=== PATIENT | female | born 1965 | race Caucasian/White ===

== ENCOUNTER 2025-07-10 14:18 | Outpatient (CLI) | payer MEDICARE, MEDICAID, SELFPAY ==
--- NOTE | ~2025-07-10 | XR_ITS ---
MODIFIED ESOPHAGRAM HISTORY: Dysphagia. TECHNIQUE: Modified barium esophagram was performed on 07/10/2025. I administered fluoroscopy and performed the exam with speech pathologist. Patient was seated for lateral fluoroscopic imaging for ingestion of thin liquids, pudding, solids and quantified amounts, followed by thin liquids in uncontrolled amounts. This was recorded on tape. A single fluoroscopic spot image was also recorded. The DAP for this procedure was 4.083 Gycm2. The amount of fluoroscopy time used during this procedure was 2.1 minutes. FINDINGS: Oral stage: Adequate function. Pharyngeal stage: Reduced laryngeal elevation and tongue base retraction. There is vallecular residue. Laryngeal penetration without evident aspiration however assessment for aspiration significantly limited by poor visualization of the level of the vocal cords due patient body habitus and positioning with underpenetration resulting from the patient's shoulders.. Cervical/esophageal stage: Adequate function. IMPRESSION: Pharyngeal dysphagia with laryngeal penetration. Please correlate with speech pathologist findings and specific feeding recommendations. Reviewed, dictated and finalized at location A.
--- OUTSIDE RECORDS SUMMARY | 2025-07-10 14:56 | XMS_ITS | Clinical Summary ---
Author Organization [facility] [address] [place] [address] Care Team Providers Care Cmo Name Role Phone Angela Wu MD Primary Care Provider [phone] Allergies No known active allergies Medications atorvastatin (LIPITOR) 40 mg tablet Take 1 tablet (40 mg total) by mouth daily Active levothyroxine (SYNTHROID, LEVOTHROID) 50 mcg tablet Take 1 tablet (50 mcg total) by mouth back joiner before breakfast Active ketoconazole (NIZORAL) 2 % shampoo Apply topically 2 (two) times a week. Apply to damp skin, lather, leave on 5 minutes, and rinse Active cyanocobalamin (Vitamin B-12) 1,000 mcg tabletIndicati ons:Prevention of Vitamin B12 Deficiency Take 1 tablet (1,000 mcg total) by mouth daily Active multivitamin capsule Take 1 capsule by mouth daily Active triamcinolone (KENALOG) 0.1 % cream triamcinolone acetonide 0.1 % topical cream APPLY THIN LAYER TOPICALLY TO THE AFFECTED AREA TWICE DAILY FOR 7 DAYS Active calcium carbonate-julia min D3 (CALTRATE 600 + D) 1500 mg (600 mg elemental) -400 units per tablet calcium carbonate 600 mg (1,500 mg)-vitamin D3 400 unit tablet TAKE 1 TABLET BY MOUTH TWICE DAILY Active escitalopram (LEXAPRO) 10 mg tablet TAKE 1 TABLET BY MOUTH DAILY 90 tablet [address] (DEPAKOTE) 250 mg EC tablet TAKE 1 TABLET BY MOUTH TWICE DAILY 180 tablet 3 3 Active donepeziL (ARICEPT) 5 mg tablet Take 1 tablet (5 mg total) by mouth daily with breakfast 90 tablet 3 3 Active nystatin cream APPLY TOPICALLY TO THE AFFECTED AREA TWICE DAILY 3 Active melatonin tabletIndicati ons:Insomnia Take 1 tablet (3 mg total) by mouth nightly Active memantine (NAMENDA) 10 mg tablet TAKE 1 TABLET BY MOUTH TWICE DAILY 200 tablet 2 3 Active Active Problems Problem Noted Date Diagnosed Date Bacteremia 07/10/2023 Alzheimer disease 03/17/2021 Abnormal LFTs 01/07/2021 Assessment & Plan (01/07/2021 6:23 PM CDT): A mildly elevated ALT that has subsequently normalized. Most likely possibility is non-alcoholic steatohepatitis. I have recommended an ultrasound to see if there is fatty tissue in the liver. I am also screening her for hepatitis-C and hepatitis-B. If either of these studies are positive, antiviral therapy may need to be discussed. If fatty liver is the only abnormality, routinely, I would recommend weight loss. This is the most effective means of decreasing hepatic fat. Unfortunately, with her dementia and relative debilitation, caloric restriction and an exercise program may be difficult to achieve. Furthermore, there is no obvious evidence of advanced liver disease. Many patients with fatty liver go on to live for decades. Further recommendations when results of studies are available. Urinary incontinence 08/17/2020 Abnormality of gait and mobility 08/17/2020 Caregiver stress 08/17/2020 Wandering 08/17/2020 Frequent falls 08/17/2020 Memory loss 02/08/2019 Insomnia 09/24/2018 Hyperlipidemia 06/06/2018 Hypothyroidism 06/06/2018 Down syndrome 06/06/2018 Hyperglycemia 08/16/2017 Obstructive sleep apnea of adult 06/14/2017 Immunizations Immunization Administration Dates Next Due Moonshado (J&J) SARS-CoV-2 Vaccination 11/19/2020 Surgical History Surgery Date Site/Laterality Comments NO PAST SURGERIES Medical History Medical History Date Comments Down syndrome Social History Tobacco Use Types Packs/Day Years Used Date Smoking Tobacco: Never Smokeless Tobacco: Never [facility] Utilities Answer Date Recorded In the past 12 months has [employer], gas, oil, or water company threatened to shut off services in your home? No 07/10/2023 Social Connection and Isolation Panel Answer Date Recorded In a typical week, how many times do you talk on the phone with family, friends, or neighbors? Twice a week 07/10/2023 How often do you get togethe r with friends or relatives? More than three times a week 07/10/2023 How often do you attend chur ch or latter day services? Never 07/10/2023 Do you belong to any clubs o r organizations such as scientologist groups, unions, fraternal or athletic groups, or school groups? No 07/10/2023 How often do you attend meet ings of the clubs or organizations you belong to? Never 07/10/2023 Are you , , di vorced, , never , or living with a partner? Never 07/10/2023 AUDIT-C Answer Date Recorded Q1: How often do you have a drink containing alc ohol? Never 01/07/2021 Average Number of Drinks Not on file 021 Q3: How often do you have si x or more drinks on one occasion? Never 01/07/2021 Overall Financial Resource Strain (CARDIA) Answe r Date Recorded How hard is it for you to pa y for the very basics like food, housing, medical care, and heating? Not hard at all 07/10/2023 Hunger Vital Sign Answer Date Recorded Within the past 12 months, y ou worried that your food would run out before you got the money to buy more. Never true 07/10/20 23 Within the past 12 months, t he food you bought just didn't last and you didn't have money to get more. Never true 07/10/2023 PRAPARE - Transportation Answer Date Re corded In the past 12 months, has l ack of transportation kept you from medical appointments or from getting medications? No 06/13 In the past 12 months, has l ack of transportation kept you from meetings, work, or from getting things needed for daily living? No 07/10/2023 Housing Stability Vital Sign Answer Dmitriy e Recorded In the last 12 months, was t here a time when you were not able to pay the mortgage or rent on time? No 07/10/2023 In the last 12 months, how many places have you lived? 1 07/10/2023 In the last 12 months, was t here a time when you did not have a steady place to sleep or slept in a alf (including now)? No 07/10/2023 Personal Safety Answer Date Recorded Have you ever been in or are you currently in a harmful physical or emotional relationship or is someone making you feel afraid or unsafe? Unable to Answer 07/10/2023 Comments Unknown Sex and Gender Information Value Date Recorded Sex Assigned at Not on file Legal Sex Female 11:55 AM CDT Gender Identity Not on file Sexual Orientation Not on file Occupation Industry Job Start Date Job End Date Disabled Not on file Not on file Not on file Obstetrics History Last Filed Vital Signs Vital Sign Reading Time Taken Comments Blood Pressure 111/68 07/12/2023 11:55 AM CDT Pulse 84 07/12/2023 11:55 AM CDT Temperature 36.7 C (98.1 F) 07/12/2023 11:55 AM CDT Respiratory Rate 14 07/12/2023 8:32 AM CDT Oxygen Saturation 95% 07/12/2023 11:55 AM CDT Inhaled Oxygen Concentration - - Weight 67.8 kg (149 lb 7.6 oz) 07/10/2023 8:48 A M CDT Height 139.7 cm (4' 7) 07/10/2023 8:48 AM CDT Body Mass Index 34.74 07/10/2023 8:48 AM CDT Plan of Treatment Health Maintenance Due Date Last Done Comments Breast Cancer Screening-Mammogram 1967 Cervical Cancer Screening 1967 Colon Cancer Screening-Colonoscopy 1967 Depression Screening 1967 DTaP/Tdap/Td Vaccine (1 - Tdap) 1978 Hepatitis B Screening 1985 Regular Well Visit/Exam 18-64 1985 Zoster Vaccine (1 of 2) 2017 Covid-19 Vaccine ( season) 2025 04/09/2022, 08/04/2021, 11/19/2020 Influenza Vaccine (#1) 2025 , 06/23/2021, 06/12/2020, Additional history exists Hepatitis C Screening Completed 01/07/2021 Pneumococcal vaccine <65 Aged Out No longer eligible based on patient's age to complete this topic Procedures Procedure Name Priority Date/Time Associated Diagnosis Comments HEPATITIS C ANTIBODY Routine 01/07/2021 1:38 PM CDT Abnormal LFTs from Last 3 Months or Most Recently Relevant to Health Maintenance Results * Hepatitis C antibody (01/07/2021 1:38 PM CDT) Hep C Ab Nonreactive Nonreactive [facility] Comment:Antibodies to HCV no t detected. Does NOT exclude the possibility of recent exposure to HCV. Blood specimen (specimen) 01/07/2021 1:38 PM CDT 01/07/2021 4:51 PM CDT Robert Solis MD LAB MICROBIOLOGY - GEN ERAL ORDERABLES Edited Result - Final [facility] Department [place] [address] from Last 3 Months or Most Recently Relevant to Health Maintenance Insurance [employer] [facility] MEDICARE ADVANTAGE [employer]PA [facility] MEDICARE ADVANTAGE IDPA Advance Directives For more information, please contact: [phone] * LIMITED - No CPR (Latest Code Status on File) Date Activated Date Inactivated Comments 07/10/2023 2:00 PM 07/12/2023 9:49 PM Question Answer Comments Provide aggressive medical m anagement before a full cardiopulmonary arrest occurs. Use antibiotics, IV Fluids, and medical treatment unless specifically selected below: No intubation Care Teams Cmo Relationship Specialty Start Date End Date Angela Wu MD PCP - General Family Medicine 08/17/20
--- OUTSIDE RECORDS SUMMARY | 2025-07-10 14:56 | XMS_ITS | Data Portability ---
Author Organization [facility] Address [address] [place] [address] Care Team Providers Care Principal Software Architect Name Role Phone NACHO SIBLEY Director Occupational CHRISTIN ADAMS Primary Care Provider Assessment No assessment recorded. Plan of Treatment Reminders Order Date Submit Date Provider Last Modified By Organization Details Last Modified Time Details Appointments None recorded. Lab CMP, serum or plasma 2022 023 [facility], [address] [place] [address], [address], [place], [address], 19:10:52 lipid panel, serum 2022 023 [facility], [address] [place] [address], [address], [place], [address], 19:10:52 CBC w/ auto diff 2022 023 [facility], [facility], [address], [place], [address], 19:10:53 HbA1c (hemoglobin A1c), blood 2022 023 [facility], [address] [facility] [address], [address], [place], [address], 3 06:20:11 TSH + free T4, serum 2022 023 [facility], [address] [facility], [address], [place], [address], 3 08:21:06 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 Surgeries None recorded. Imaging US, duplex, venous, lower extremity 2022 023 [facility]), [address] [facility], [place], [address], 4 05:01:53 Medication Orders triamcinolo ne acetonide 0.1 % topical cream 2022 023 [id number], [address], [place], [place], [id number], 3 12:08:04 nystatin 100,000 unit/gram topical cream 2022 023 [facility][id number], [address], [place], [place], [id number], 3 12:08:03 polymyxin B sulfate 10,000 unit-trimet hoprim 1 mg/mL eye drops 2022 023 [facility], [address], [address], [id number], 3 09:37:23 Patient TargetsNo targets recorded. 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 Referral for Onyc homycosis of toenails Referring Physician: Christin Adams, Family Medicine, Encounter Date: 03/22/2023 Results Created Date Observation Date Name Description Value Unit Range Abnormal Flag Note LastModifiedBy Organization Detail LastModifiedTime 09/14/1909/15/2022 TSH+F REE T4 TSH 1.480 uIU/m L 0.450- 4.500 Not Available [facility] ([facility]) [address] [place], [address], 09/15/2022 08:21:06 09/14/1909/15/2022 TSH+F REE T4 T4,free(dire ct) 1.22 NG/dL 0.82-1 .77 Not Available [facility] ([facility]) [address] [facility], [place], [address], 09/15/2022 08:21:06 03/22/20 23 03/22/2023 LIPID PANEL WITH LDL/H DL RATIO cholesterol, total 167.9 mg/dL 140.0- 200.0 Not Available [facility] [address] [place], [address], 03/22/2023 19:10:52 03/22/2003/22/2023 LIPID PANEL WITH LDL/H DL RATIO triglyceride s 160 mg/dL <=150 above high normal Not Available [facility] [address] [place], [address], 03/22/2023 19:10:52 03/22/20 23 03/22/2023 LIPID PANEL WITH LDL/H DL RATIO HDL cholesterol 36.4 mg/dL 40.0-1 00.0 below low normal Not Available [facility] [address] [place], [address], 03/22/2023 19:10:52 03/22/20 23 03/22/2023 LIPID PANEL WITH LDL/H DL RATIO VLDL cholesterol margie 32.00 mg/dL 5.00-4 0.00 Not Available [facility] [address] [place] [address], [address], 03/22/2023 19:10:52 03/22/20 23 03/22/2023 LIPID PANEL WITH LDL/H DL RATIO LDL chol calc ([facility]) 103.3 mg/dL 0.0-99 .0 above high normal Not Available [facility] [address] [place] [address], [address], 03/22/2023 19:10:52 03/22/20 23 03/22/2023 LIPID PANEL WITH LDL/H DL RATIO LDL/HDL ratio 2.8 Not Available [facility] [address] [place], [address], 03/22/2023 19:10:52 03/22/20 23 03/22/2023 COMP. METAB OLIC PANEL (14) glucose 95 mg/dL 65-99 ANION GP 16.0 mmol/ L N OSMOL 287.0 mOsM/ L N REFER ENCE RANGE : 275.0 -301. 0 Not Available [facility] [address] [place], [address], 03/22/2023 19:10:52 03/22/20 23 03/22/2023 COMP. METAB OLIC PANEL (14) BUN 15 mg/dL 8-26 Not Available [facility] [address] [place], [address], 03/22/2023 19:10:52 03/22/20 23 03/22/2023 COMP. METAB OLIC PANEL (14) creatinine 1.14 mg/dL 0.50-1 .40 Not Available [facility] [address] [place], [address], 03/22/2023 19:10:52 03/22/20 23 03/22/2023 COMP. METAB OLIC PANEL (14) eGFR 57 mL/mi n/1.7 3 >=60 below low normal Not Available [facility] [address] [place] [address], [address], 03/22/2023 19:10:52 03/22/20 23 03/22/2023 COMP. METAB OLIC PANEL (14) BUN/creatini ne ratio 13.0 Not Available [facility] [address] [place], [address], 03/22/2023 19:10:52 03/22/20 23 03/22/2023 COMP. METAB OLIC PANEL (14) sodium 144.0 mmol/ L 136.0- 144.0 Not Available [facility] [address] [place] [address], [address], 03/22/2023 19:10:52 03/22/20 23 03/22/2023 COMP. METAB OLIC PANEL (14) potassium 4.3 mmol/ L 3.5-5. 3 Not Available [facility] [address] [place], [address], 03/22/2023 19:10:52 03/22/20 23 03/22/2023 COMP. METAB OLIC PANEL (14) chloride 106 mmol/ l 101-11 1 Not Available [facility] [address] [place] [address], [address], 03/22/2023 19:10:52 03/22/20 23 03/22/2023 COMP. METAB OLIC PANEL (14) carbon dioxide, total 26.4 mmol/ L 21.0-3 2.0 Not Available [facility] [address] [place], [address], 03/22/2023 19:10:52 03/22/20 23 03/22/2023 COMP. METAB OLIC PANEL (14) calcium 8.6 mg/dL 8.2-10 .0 Not Available [facility] [address] [place] [address], [address], 03/22/2023 19:10:52 03/22/20 23 03/22/2023 COMP. METAB OLIC PANEL (14) protein, total 6.8 g/dL 6.7-8. 2 Not Available [facility] [address] [place], [address], 03/22/2023 19:10:52 03/22/20 23 03/22/2023 COMP. METAB OLIC PANEL (14) albumin 3.5 g/dL 3.5-5. 5 Not Available [facility] [address] [place], [address], 03/22/2023 19:10:52 03/22/20 23 03/22/2023 COMP. METAB OLIC PANEL (14) globulin, total 3.3 g/dL 1.5-4. 5 Not Available [facility] [address] [place], [address], 03/22/2023 19:10:52 03/22/20 23 03/22/2023 COMP. METAB OLIC PANEL (14) A/G ratio 1.0 Not Available [facility] [address] [place], [address], 03/22/2023 19:10:52 03/22/20 23 03/22/2023 COMP. METAB OLIC PANEL (14) bilirubin, total 0.3 mg/dL 0.0-1. 2 Not Available [facility] [address] [place], [address], 03/22/2023 19:10:52 03/22/20 23 03/22/2023 COMP. METAB OLIC PANEL (14) alkaline phosphatase 99.8 IU/L 42.0-1 21.0 Not Available [facility] [address] [place], [address], 03/22/2023 19:10:52 03/22/20 23 03/22/2023 COMP. METAB OLIC PANEL (14) AST (SGOT) 34.8 U/L 10.0-4 2.0 Not Available [facility] [address] [place], [address], 03/22/2023 19:10:52 03/22/20 23 03/22/2023 COMP. METAB OLIC PANEL (14) ALT (SGPT) 36.3 U/L 10.0-6 0.0 Not Available [facility] [address] [place], [address], 03/22/2023 19:10:52 03/22/20 23 03/22/2023 CBC WITH DIFFE RENTI AL/PL ATELE T WBC 5.4 K/uL 3.4-10 .8 Not Available [facility] [address] [place], [address], 03/22/2023 19:10:53 03/22/20 23 03/22/2023 CBC WITH DIFFE RENTI AL/PL ATELE T RBC 4.4 M/uL 4.2-5. 4 Not Available [facility] [address] [place], [address], 03/22/2023 19:10:53 03/22/20 23 03/22/2023 CBC WITH DIFFE RENTI AL/PL ATELE T hemoglobin 14.4 g/dL 11.5-1 5.5 Not Available [facility] [address] [place], [address], 03/22/2023 19:10:53 03/22/20 23 03/22/2023 CBC WITH DIFFE RENTI AL/PL ATELE T hematocrit 44.2 % 36.0-4 8.0 Not Available [facility] [address] [place], [address], 03/22/2023 19:10:53 03/22/20 23 03/22/2023 CBC WITH DIFFE RENTI AL/PL ATELE T MCV 100 fL 80-95 above high normal Not Available [facility] [address] [place], [address], 03/22/2023 19:10:53 03/22/20 23 03/22/2023 CBC WITH DIFFE RENTI AL/PL ATELE T MCH 33 pg 27-32 above high normal Not Available [facility] [address] [place], [address], 03/22/2023 19:10:53 03/22/20 23 03/22/2023 CBC WITH DIFFE RENTI AL/PL ATELE T MCHC 33 g/dL 32-36 Not Available [facility] [address] [place], [address], 03/22/2023 19:10:53 03/22/20 23 03/22/2023 CBC WITH DIFFE RENTI AL/PL ATELE T RDW 17.6 % 11.5-1 4.5 above high normal Not Available [facility] [address] [place], [address], 03/22/2023 19:10:53 03/22/20 23 03/22/2023 CBC WITH DIFFE RENTI AL/PL ATELE T platelets 255 K/uL 155-37 9 MPV 10.0 FL 8.9-1 2.7 N Not Available [facility] [address] [place], [address], 03/22/2023 19:10:53 03/22/20 23 03/22/2023 CBC WITH DIFFE RENTI AL/PL ATELE T neutrophils 60.6 % 40.0-7 4.0 Not Available [facility] [address] [place], [address], 03/22/2023 19:10:53 03/22/20 23 03/22/2023 CBC WITH DIFFE RENTI AL/PL ATELE T lymphs 26.2 % 14.0-4 6.0 Not Available [facility] [address] [place], [address], 03/22/2023 19:10:53 03/22/20 23 03/22/2023 CBC WITH DIFFE RENTI AL/PL ATELE T monocytes 5.4 % 4.0-12 .0 Not Available [facility] [address] [place], [address], 03/22/2023 19:10:53 03/22/20 23 03/22/2023 CBC WITH DIFFE RENTI AL/PL ATELE T eos 4 % 0-5 Not Available [facility] [address] [place], [address], 03/22/2023 19:10:53 03/22/20 23 03/22/2023 CBC WITH DIFFE RENTI AL/PL ATELE T basos 2.2 % 0.0-1. 0 above high normal Not Available [facility] [address] [place], [address], 03/22/2023 19:10:53 03/22/20 23 03/22/2023 CBC WITH DIFFE RENTI AL/PL ATELE T neutrophils (absolute) 3.2 K/uL 1.4-7. 0 Not Available [facility] [address] [place], [address], 03/22/2023 19:10:53 03/22/20 23 03/22/2023 CBC WITH DIFFE RENTI AL/PL ATELE T lymphs (absolute) 1.4 K/uL 0.7-3. 1 Not Available [facility] [address] [place], [address], 03/22/2023 19:10:53 03/22/20 23 03/22/2023 CBC WITH DIFFE RENTI AL/PL ATELE T monocytes(ab solute) 0.3 K/uL 0.1-0. 9 Not Available [facility] [address] [place], [address], 03/22/2023 19:10:53 03/22/20 23 03/22/2023 CBC WITH DIFFE RENTI AL/PL ATELE T eos (absolute) 0.2 K/uL 0.0-0. 4 Not Available [facility] [address] [place], [address], 03/22/2023 19:10:53 03/22/20 23 03/22/2023 CBC WITH DIFFE RENTI AL/PL ATELE T baso (absolute) 0.1 K/uL 0.0-0. 3 Not Available [facility] [address] [place], [address], 03/22/2023 19:10:53 03/22/20 23 03/22/2023 CBC WITH DIFFE RENTI AL/PL ATELE T immature granulocytes 1.9 % Not Available [facility] [address] [place], [address], 03/22/2023 19:10:53 03/22/20 23 03/22/2023 CBC WITH DIFFE RENTI AL/PL ATELE T immature grans (abs) 0.1 K/uL Not Available [facility] [address] [place], [address], 03/22/2023 19:10:53 03/22/20 23 03/22/2023 CBC WITH DIFFE RENTI AL/PL ATELE T NRBC 0 % Not Available [facility] [address] [place], [address], 03/22/2023 19:10:53 03/22/20 23 03/23/2023 HEMOG LOBIN A1C hemoglobin A1C 5.7 % 4.8-5. 6 above high normal Predi abete s: 5.7 - 6.4 Diabe thien: >6.4 Glyce kit contr ol for adult s with diabe thien: <7.0 Not Available [facility] ([facility]) [address] [facility], [place], [address], 03/23/2023 06:20:11 04/19/20 23 04/19/2023 [place], [place] [facility] [place] [facility], [facility] [place] [facility] No observ ation record ed. [facility] [address], [place], [address], 04/19/2023 13:02:21 Result Notes None recorded. Problems Name Problem SNOMED Code Status Onset Date Resolution Date Notes Provider Name and Address Organization Details Recorded Time Darlene lowry n 157886104 Active Ernesto Florentino MD Attn: Accountin g,[address] [facility], [place], [address], [place] [facility] 6 11:16:34 Urinary incontine nce 043842745 Active J[place]ain [place], [place] - [facility] 5 12:53:52 Swollen abdomen 46833895 Completed 07/15/2021 LAINE PRESTON Attn: Accountin g,[address] [facility], [place], [address], [place] [facility] 1 16:44:15 Abnormal cervical Papanicol aou smear 570966180 Active [place] - [facility] 5 12:53:52 Hyperlipi demia 78955753 Active LAINE PRESTON Attn: Accountin g,[address] [facility], [place], [address], [place] [facility] 3 09:25:36 Hypothyro idism 28957324 Active LAINE PRESTON Attn: Accountin g,[address] [facility], [place], [address], [place] [facility] 3 09:25:32 Lesion of skin of face 618811267237 Active Ernesto Florentino MD Attn: Accountin g,[address] [facility], [place], [address], [place] [facility] 6 11:16:34 Obstructi ve sleep apnea of adult 797477852384 3 Active 2016 LAINE PRESTON Attn: Liza york,[address] [facility], [place], [address], [place] [facility] 3 10:24:31 Active immunizat ion Completed 201607/15/2021 LAINE PRESTON Attn: Liza york,[address] [facility], [place], [address], [place] [facility] 1 16:44:01 Excessive thirst 87923407 Active 2016 Flaca Hsieh MD Attn: Liza york,[address] [facility], [place], [address], [place] [facility] 7 11:30:16 Micturiti on frequency and polyuria 899355953 Active 2016 Flaca Hsieh MD Attn: Liza york,[address] [facility], [place], [address], [place] [facility] 7 11:30:35 [facility] emia 39073922 Active 2016 Flaca Hsieh MD Attn: Liza york,[address] [facility], [place], [address], [place] [facility] 7 11:34:20 Administr ation of influenza vaccine Completed 201707/15/2021 LAINE PRESTON Attn: Liza york,[address] [facility], [place], [address], [place] [facility] 1 16:44:04 Dementia 62193860 Active 2018 LAINE PRESTON Attn: Liza york,[address] [facility], [place], [address], [place] [facility] 1 16:45:00 Alzheimer 's disease 88127633 Active 2018 LAINE PRESTON Attn: Liza york,[address] [facility], [place], [address], [place] [facility] 1 16:45:08 Sleep apnea 17093518 Completed 201907/15/2021 LAINE PRESTON Attn: Liza york,[address] 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, [place], [address], [facility] 1 16:43:57 Problem Notes None recorded. Procedures Surgical History Date Name Laterality Status Provider Name and Address Organization Details Recorded Time 3 Nail Debridement completed EMMY MCCORD DPM [address] [place], [address], [facility] 04/04/2023 21:04:59 7 Most Recent Mammogram completed Margot Last MA [facility] 03/29/2017 14:49:11 5 Date of Last Pap Smear completed Tila Devries MA [facility] 12/28/2016 14:36:08 Imaging Results None recorded. Procedure Notes None recorded. Medical Equipment None Reported. Allergies No known drug allergies Medications Name Sig Start Date Stop Date Status Note LastModified by Organization Details LastModified Time Prescript ion - Renewal 11/15 completed atorvast atin Not Available Not Available Not Available Prescript ion - Prior Authoriza tion Request 02/12 completed please check dose Not Available Not Available Not Available levothyro xine sodium 50 mcg tabs 02/12 completed Not Available Not Available Not Available donepezil hcl 10 mg tabs 1 tablet daily at night time 02/16 completed Not Available Not Available Not Available multivita min tablet TAKE 1 TABLET EVERY DAY BY ORAL ROUTE active Not Available Not Available No t Available atorvasta tin 40 mg tablet TAKE 1 TABLET BY MOUTH AT BEDTIME active Not Available Not Available No t Available donepezil 5 mg tablet TAKE ONE TABLET BY MOUTH EVERY MORNING WITH BREAKFAS T active Not Available Not Available No t Available ketoconaz ole 2 % shampoo 02/12 completed Not Available Not Available Not Available divalproe x 250 mg tablet,de layed release active Not Available Not Available Not Available azithromy rosalva 250 mg tablet active Not Available Not Available No t Available fluconazo le 150 mg tablet Take 1 tablet every day by oral route for 1 day. 02/12 completed Not Available Not Available Not Available donepezil 10 mg tablet 07/10 completed Not Available Not Available Not Available Elidel 1 % topical cream 02/12 completed Not Available Not Available Not Available melatonin 3 mg tablet Take 1 tablet every day by oral route at bedtime for 30 days. active OTC Not Available Not Available No t Available triamcino lone acetonide 0.1 % topical cream APPLY THIN LAYER TOPICALL Y TO THE AFFECTED AREA TWICE DAILY FOR 7 DAYS active Not Available Not Available No t Available Depo-Prov era 150 mg/mL intramusc ular suspensio n Inject 1 mL every 3 months by intramus cular route. 05/03 completed Not Available Not Available Not Available levothyro xine 50 mcg tablet TAKE 1 TABLET BY MOUTH ONCE DAILY BEFORE MEALS FOR 30 DAYS active Not Available Not Available No t Available cephalexi n 500 mg capsule Take 1 capsule every 12 hours by oral route. 10/26 completed Not Available Not Available Not Available nystatin 100,000 unit/gram topical cream APPLY TOPICALL Y TO THE AFFECTED AREA TWICE DAILY active Not Available Not Available No t Available polymyxin B sulfate 10,000 unit-trim ethoprim 1 mg/mL eye drops INSTILL 1 DROP INTO AFFECTED EYE(S) BY OPHTHALM IC ROUTE EVERY 6 HOURS X7 DAYS 03/22 completed Not Available Not Available Not Available clobetaso l 0.05 % scalp solution 02/12 completed Not Available Not Available Not Available medroxypr ogesteron e 150 mg/mL intramusc ular syringe INJECT IM EVERY 3 MONTHS DIRECTED 05/03 completed Not Available Not Available Not Available escitalop kiran 10 mg tablet active Not Available Not Available Not Available memantine 10 mg tablet active Not Available Not Available Not Available memantine 5 mg tablet 11/15 completed Not Available Not Available Not Available escitalop kiran 5 mg tablet TAKE ONE TABLET BY MOUTH EVERY DAY 02/16 completed Not Available Not Available Not Available Calcium 600 active 2 daily Not Available Not Available Not Available calcium 600 mg (as carbonate )-vitamin D3 10 mcg (400 unit) tablet TAKE 1 TABLET BY MOUTH TWICE DAILY 07/15 completed Not Available Not Available Not Available cyanocoba mariaelena (vit B-12) 1,000 mcg sublingua l lozenge Place 1 lozenge by sublingu al route as directed . active 1 Every other Day Not Available Not Available Not Available Flucelvax Quad (PF) 60 mcg (15 mcg x 4)/0.5 mL IM syringe 07/15 completed Not Available Not Available Not Available Vitals Date Recorded Oxygen saturation Oxygen saturation in Arterial blood by Pulse oximetry Heart rate Provider Name and Address Organization Details Last Updated DateTime 11/15/2022 93 % 93 % 94 /min LAINE PRESTON Attn: Accounting, [address] [place], [address], [facility] 11/15/2022 12:30:23 Date Recorded Body height Body mass index (BMI) Body weight Respiratory rate Body temperature Systolic And Diastolic Provider Name and Address Organization Details Last Updated DateTime 3 134.62 cm 35.4 kg/m2 01472.9 2 g 20 /min 98.5 [degF] 124/80 mm[Hg] Denise Han CMA [facility] 3 12:06:50 Date Recorded Body height Oxygen saturation Oxygen saturation in Arterial blood by Pulse oximetry Heart rate Respiratory rate Systolic And Diastolic Provider Name and Address Organization Details Last Updated DateTime 3 134.62 cm 96 % 96 % 95 /min 18 /min 122/82 mm[Hg] Yuki Jarvis MA [facility] 3 09:32:10 Date Recorded Body height Pain severity - 0-10 verbal numeric rating [Score] - Reported Body temperature Provider Name and Address Organization Details Last Updated DateTime 04/03/2023 134.62 cm 0 98.2 [degF] Yifan Jacobo MA [facility] 04/03/2023 11:56:08 Date Recorded Heart rate Respiratory rate Provider N elizabeth and Address Organization Details Last Updated DateTime 06/21/2023 85 /min 20 /min LAINE PRESTON Attn: Accounting,[address] [place], [address], [facility] 06/21/2023 16:26:56 Date Recorded Body height Provider Name an d Address Organization Details Last Updated DateTime 06/21/2023 134.62 cm Yuki Jarvis MA [facility] 10:01:59 Social History Question Answer Notes LastModified by Organizat ion Details LastModified Time Tobacco Smoking Status Never Smoker Tila Devries MA null, [facility] 09/22/2014 11:29:08 Do You Have An Advance Directive? Yes Information n ot available 09/22/2014 Are You Blind Or Do You Have Difficulty Seeing? No Information n ot available 01/27/2021 Is Blood Transfusion Acceptable In An Emergency? Yes Information not available 09/22/2014 What Is Your Level Of Caffeine Consumption? None Information not available 01/27/2021 How Much Tobacco Do You Chew? None Information not available 09/22/2014 In The 14 Days Before Symptom Onset, Have You Had Close Contact With A Laboratory-confirm ed COVID-19 While That Case Was Ill? No Information n ot available 01/27/2021 In The 14 Days Before Symptom Onset, Have You Had Close Contact With A Person Who Is Under Investigation For COVID-19 While That Person Was Ill? No Information not available 01/27/2021 Have You Been To An Area Known To Be High Risk For COVID-19? No Information not available 01/27/2021 Are You Deaf Or Do You Have Serious Difficulty Hearing? No Information not available 01/27/2021 What Type Of Diet Are You Following? REGULAR Information n ot available 09/22/2014 Education 12 Information no t available 09/22/2014 Are There Any Guns Present In Your Home? No Information not available 01/27/2021 Hard Of Hearing Or Deaf In One Or Both Ears? No Information not available 02/13/2020 Legally Blind In One Or Both Eyes? No Information no t available 02/13/2020 Live Alone Or With Others? With Others Information not available 09/22/2014 Marital Status Single Informatio n not available 02/13/2020 What Was The Date Of Your Most Recent Tobacco Screening? 04/03/2023 Information not available 04/03/2023 How Many Children Do You Have? 0 Information not available 09/22/2014 Performs Monthly Self-breast Exam? No Information no t available 09/22/2014 Do You Use Protection During Sex? No Information not available 09/22/2014 What Is Your Relationship Status? Single Information not available 09/22/2014 Do You Use Your Seat Belt Or Car Seat Routinely? Yes Information not available 01/27/2021 Seat Belts Used Routinely Yes Information not available 09/22/2014 Are You Sexually Active? No Information not available 09/22/2014 Smoke Alarm In Home Yes Information not available 02/13/2020 Do You Have Smoke And Carbon Monoxide Detectors In Your Home? Yes Information not available 01/27/2021 Are You Passively Exposed To Smoke? No Information no t available 01/27/2021 How Much Tobacco Do You Smoke? No Information not available 02/13/2020 General Stress Level Low Information not available 09/22/2014 Do You Use Sunscreen Routinely? Yes Information not available 09/22/2014 Has Tobacco Cessation Counseling Been Provided? No [email or web address] Information not available 02/16/2022 On What Date Was Tobacco Cessation Counseling Provided? 04/03/2023 Information not available 04/03/2023 How Many Years Have You Smoked Tobacco? 0 Information not available 02/13/2020 Sex: Female Functional Status Question Answer Note LastModified by Organizat ion Details LastModified Time Do you use any illicit or recreational drugs? No Information not available 01/27/2021 What is your level of alcohol consumption? None Information not available 09/22/2014 Do you or have you ever used smokeless tobacco? Never used smokeless tobacco Information not available 02/13/2020 Are you currently employed? No Information not available 09/22/2014 Are you able to care for yourself independently? No Information not available 01/27/2021 What is your occupation? Disabled [email or web address] Information not available 03/29/2017 Do you or have you ever used e-cigarettes or vape? Never used electronic cigarettes Information not available 02/13/2020 What is your exercise level? None Information not available 09/22/2014 Mental Status None recorded. Family History Relationship Description Onset Age of this Age Resolved Age Notes LastModified by Organization Details LastModified Time Mother Heart disease [email or web address] Not available 12/11 15:12:40 Father Heart disease [email or web address] Not available 12/11 15:12:40 Notes:Pt. was a foster child , unknown family history Medical History Condition Response Other Y High Blood Pressure N Breast Cancer N Thyroid Problems Y Kidney or Bladder Problems N GI Problems N Lung Disease N Depression N Blood Clots N Acne N Breast Problem N Skin Problems Y Eating Disorder N Anemia N Anesthesia Complications N Headaches/Migraines N Anxiety Disorder N Diabetes N Ovarian Cancer N Muscle, Joint, or Bone Problems N Blood Transfusions N Seizures/Epilepsy N Polyps N Infertility N Acid Reflux (GERD) Y Cancer N Abuse/Domestic Violence N Asthma N Allergies N ADHD N Endometriosis N High Cholesterol Y Hepatitis N Liver Disease N Heart Disease N Pre-Eclampsia N Osteoporosis Y Gynecological History Statement/Question Response Abnormal Pap Y On BCP's at Conception? N STIs/STDs N HPV Vaccine N Most Recent Mammogram 02/22/2017 Age at Menarche 14 Current Control Method None Sexually Active? N Menses Monthly N Date of Last Pap Smear 12/12/2014 Sexual Problems? N LMP Unknown Desired Control Method None Obstetrics History GPAL:G 0 P 0 0 0 0 Type Value Multiple Births 0 Full Term 0 Induced 0 Spontaneous 0 Premature 0 Living 0 Ectopics 0 Total 0 Immunizations Vaccine Type Date Status Note Provider Nam e and Address Organization Details Recorded Time Influenza, split virus, quadrivalent, preservative 9 completed Not Available [facility] 01/15/2021 04:04:04 COVID-19 vaccine, vector-nr, rS-Ad26, PF, 0.5 mL 1 completed Amelia Garcia null, [place] - [facility] 03/11/2021 16:20:50 Influenza, split virus, quadrivalent, preservative 1 completed Romeo Smiley MA [facility] 07/15/2021 15:57:46 Influenza, split virus, quadrivalent, preservative 7 completed Not Available Count includes the [facility] 09/28/2019 02:44:13 Influenza, split virus, quadrivalent, PF 8 completed Not Available Count includes the [facility] 09/28/2019 02:35:59 Past Encounters Encounter ID Performer Location Encounter Start Date Encounter Closed Date Diagnosis/Indication Diagnosis SNOMED-CT Code Diagnosis ICD10 Code Diagnosis IMO Codes Diagnosis Note [id number] Errol Elias MD [facility] (PAPER CONE MACHINE OPERATOR) [address] [place] [address]144[address]413 0 09/22/2014 10:38:24 09/22/2014 12:08:40 Gynecologic examination [id number] Contraception care [id number] Ernesto Florentino MD [facility] (Adult Med) [address] [place] [address] 37033-210 0 10/16/2014 09:58:15 10/16/2014 17:45:58 Darlene phenomenon [id number] Urinary incontinence 364281057 Swollen abdomen 12886815 [id number] Jermain Gallegos MD [facility] (PAPER CONE MACHINE OPERATOR) [address] [place] [address] 03281-329 0 12/11/2014 14:03:07 12/11/2014 15:41:15 Family planning surveillance [id number] Abnormal c ervical Papanicolaou smear 979753158 Urinary incontinence 179815363 [id number] Ernesto Florentino MD [facility] (Adult Med) [address] [place] [address] 69335-597 0 04/28/2015 10:01:39 04/28/2015 10:56:41 Darlene phenomenon 841118725 Hyperlipidemia 79229775 Hypothyroidism 07935458 [id number] Ernesto Florentino MD [facility] (Adult Med) [address] [place] [address] 43265-459 0 09/25/2015 09:47:36 09/25/2015 10:58:42 Darlene phenomenon 439655414 R73.9 Hyperlipidemia 44627800 E78.5 Hypothyroidism 93610734 E03.9 [id number] MD Tamica Nickerson (Adult Med) [address] [place] [address] 50028-677 0 03/17/2016 09:37:03 03/17/2016 10:35:38 Darlene phenomenon 505650627 R73.9 Hyperlipidemia 15815983 E78.5 Hypothyroidism 78261868 E03.9 Lesion of skin of face 1163635160 06 L98.9 [id number] MD Tamica Nickerson (Adult Med) [address] [place] [address] 51788-444 0 03/31/2016 09:45:05 03/31/2016 18:11:27 Lesion of skin of face 5956033420 06 L98.9 Hyperlipidemia 04965685 E78.5 Darlene phenomenon 43819079 3 R73.9 [id number] Ernesto Florentino MD [facility] (Adult Med) [address] [place] [address] 82647-200 0 08/16/2016 09:42:39 08/16/2016 11:15:17 Hypothyroidism 58134567 E03.9 Hyperlipidemia 71935098 E78.5 Change in skin lesion 39 4198457 L98.9 [id number] MD Tamica Anderson (PAPER [employer]E MACHINE OPERATOR) [address] [place] [address] 23984-089 0 12/28/2016 13:59:45 12/29/2016 13:06:03 Screening mammography 83811212 Z12.31 Gynecologi c examination 63457254 Z01.419 Obese 775665051 E66.9 Uses depot contraception 950846737 Z30.42 she is on depo provera for 3 years. counselled about effects of prolonged use of depo provera on bone mineral density. she say she is on calcium and vitamin D. Counselled about stopping depo provera and see how her periods are after stopping. Patient and her sister in law verbalized understand ing. Agreed to stop depo provera. [id number] MD Tamica Nickerson (Adult Med) [address] [place] [address] 03311-464 0 02/14/2017 09:55:17 02/15/2017 13:04:01 Darlene phenomenon 988301969 R73.9 Hypothyroidism 11889077 E03.9 Hyperlipidemia 52057140 E78.5 [id number] MD Tamica Anderson (PAPER [employer] MACHINE OPERATOR) [address] [place] [address] 45301-685 0 03/29/2017 13:52:53 03/29/2017 15:18:52 Family planning surveillance 010492414 Z30.09 SHE SAY SHE IS DOING GOOD AFTER STOPPING DEPO PROVERA. She refuses other forms of control. Candidiasis of skin 4988 3006 B37.2 COUNSELLED ABOUT IT Pruritic rash 22951335 L 28.2 in left axilla and b/l foot. Rash in axilla is erythemato us with few infected hair follicles. Leukocytes in urine 2757 49230 R82.71 [id number] MD Tamica Anderson (PAPER [employer]E MACHINE OPERATOR) [address] [place] [address] 57243-240 0 05/03/2017 09:57:27 05/03/2017 13:57:22 Pruritic rash 05345400 L28.2 IN AXILLA. SPOKE TO DERMATOLOG Y OFFICE IN [facility] MYSELF AND GOT APPOINTMEN T THIS COMING 05/05/17. ADVISED PATIENT IMPORTANCE OF FOLLOWING WITH DERMATOLOG IST [id number] MD Tamica Esqueda (Adult Med) [address] [place] [address] 67614-981 0 06/14/2017 09:55:29 06/14/2017 12:09:48 Lesion of skin of face 0547265454 06 L98.9 Pt to see dermatolog ist in one month. labs on return Hypothyroidism 24913694 E03.9 Hyperlipidemia 72718798 E78.5 Active immunization 3387 9002 Z23 [id number] MD Tamica Esqueda (Adult Med) [address] [place] [address] 42893-157 0 08/16/2017 10:50:32 08/16/2017 12:15:24 Excessive thirst 27303058 R63.1 BS 125mg/dl Obstructiv e sleep apnea of adult 5868618958 103 G47.33 Urinary incontinence 165 727334 R32 Hypothyroidism 34739399 E03.9 Hyperlipidemia 32680756 E78.5 Hyperglycemia 82039826 R 73.9 [id number] [facility] [address] [place] [address] 11/21/2017 15:17:01 11/21/2017 16:20:10 Hyperglycemia 08062597 R73.9 Obstructiv e sleep apnea of adult 6501226071 103 G47.33 Hypothyroidism 60923273 E03.9 Hyperlipidemia 39103444 E78.5 [id number] [facility] [address] [place] [address] 05/28/2018 14:13:23 05/29/2018 12:30:36 Administration of influenza vaccine 62274343 Z23 Hypothyroidism 27424078 E03.9 Obstructiv e sleep apnea of adult 5948251490 103 G47.33 [id number] Angela Wu MD [facility] [address] [place] [address] 10/26/2018 15:34:11 11/05/2018 09:55:59 Adult health examination 452825059 Z00.00 Patient is in fairly good spirits and denies serious medical concerns. Screening mammography 24 752391 Z12.31 Periodontal disease 2556 008 K05.6 Dependence on continuous positive airway pressure ventilation 598188564 Z99.11 Dementia 46167637 F03.90 Screening colonoscopy 44 6120040 Z12.11 Diabetic foot 689339963 E11.59 will review CMP to see if we can confirm history of diabetes Dysuria 14446803 R30.0 Standardiz ed adult depression screening tool completed 7515852078 99328 Z13.89 patient does not appear to be significan tly depressed. Mixed hyperlipidemia 267 420426 E78.2 continue atorvastat in [id number] Angela Wu MD [facility] [address] [place] [address] 02/13/2020 11:24:09 03/11/2020 11:53:48 Mixed hyperlipidemia 195279530 E78.2 continue atorvastat in Screening mammography 24 012878 Z12.31 Hypothyroidism 08108839 E03.9 Adult [facility] th examination 925146198 Z00.00 Patient is in fairly good spirits and denies serious medical concerns. Dementia 34360276 F03.90 patient is on donepezil for memory problems related to her Downs' syndrome. [id number] Angela Wu MD [facility] [address] [place] [address] 03/23/2020 09:08:13 03/28/2020 03:47:07 Liver enzymes level above reference range 122535396 R74.8 [id number] LAINE CABRERA (PAPER [employer]E MACHINE OPERATOR) [address] [place] [address] 07/10/2020 12:26:01 07/13/2020 20:18:43 Gynecologic examination 76319196 Z01.419 55 y/o F with Down Syndrome, Alzheimer disease, hypothyroi dism, PETRA presents as a new patient for well-woman exam.-clin ical breast & pelvic examinatio ns completed today, unremarkab le -cervical cancer screening: last Pap 2014, negative. Vaginal pap repeated today, cervix not visualized due to patient intoleranc e. -referral for screening mammogram issued for routine breast cancer screening -routine nuswab completed, treat as needed -Educated osteoporos is prevention including calcium rich diet, weight bearing exercise. Will start supplement . -RTC in 1yr Venereal d isease screening 138255243 Z11.3 Screening for malignant neoplasm of breast 412178158 Z12.31 Mixed urin shi incontinence 479377297 N39.46 Patient has been experienci ng polyuria and urgency with incontinen ce. Diabetes screening wnl. Discussed treatment for OAB but caregiver declined at this time. Hypothyroidism 63567692 E03.9 Patient has been on the same dose for years. Last TSH normal. Levothyrox ine refilled. Candidal intertrigo 2661 17138 B37.2 Erythemato us rash c/w yeast. Start nystatin as prescribed . Keep areas clean and dry. [id number] Angela Wu MD [facility] [address] [place] [address] 01/27/2021 08:04:08 02/01/2021 09:57:00 Closed fracture of lateral malleolus of right fibula 4167733304 2112483 S82.61XD [id number] LAINE PRESTON [facility] [address] [place] [address] 07/15/2021 15:47:44 07/16/2021 11:35:51 Hypothyroidism 46219946 E03.9 re-check labs Hyperlipidemia 33136344 E78.5 re-check labs Mixed anxi ety and depressive disorder 018687791 F41.8 caregiver reports she has become more emotional latelywill start crying for no reasonlost her niece one month ago to metastatic breast cancerincr ease lexapro to 10 mg daily Severe dry skin 64132618 2 L85.3 to bilateral feethas tried gold fuentes and diabetic lotion w/o reliefhas seen derm in the pasttrial eucerin, put socks on after apply eucerinavo id showering everyday [id number] Moreno de león MD [facility] [address] [place] [address] 02/16/2022 14:03:12 02/17/2022 14:37:16 Eczema 92299503 L30.9 xerosis, erythema, and peeling to dorsal aspect of bilateral feet w/ onychomyco sisno relief with eucerintri al topical steroidf/u in 1 wk if sx don't improve, refer to podiatry Mixed anxi ety and depressive disorder 726340320 F41.8 02/16/22: improvemen t in mood and emotional outburstsw ill continue med, neuro is filling 07/2021:radha lacey reports she has become more emotional latelywill start crying for no reasonlost her niece one month ago to metastatic breast cancerincr ease lexapro to 10 mg daily Hyperlipidemia 16456243 E78.5 07/2021 controlled refill Dementia 64188725 F03.90 Diagnosed with alzheimer' s and dementia 2 yrs ago. Follows with neurology at [facility].tele visit 09/2021: started on aricept 5 mgc/o worsening repetition and memoryadvi sed f/u with neuro to see if can increase aricept Immunization due 0280438 08 Z28.3 CG would like pt to have pneumonia and shingles vaccineenc ouragedcan obtain at [facility] [id number] Moreno de león MD [facility] [address] [place] [address] 09/14/2022 09:47:03 09/22/2022 15:35:45 Hypothyroidism 23778304 E03.9 re-check labs [id number] Moreno de león MD [facility] [address] [place] [address] 11/15/2022 11:55:50 11/15/2022 12:44:36 Obesity 562675577 E66.9 Bacterial conjunctivitis 521837538 H10.9 x1 dayPEx- bilateral conjunctiv a and sclerae injectedtr ial abx eye dropsc/w warm compresses Urinary incontinence 165 109905 R32 requesting prescripti on for briefs Productive cough 3528737 5 R05.9 x2 daysgreen sputumtaki ng decongesta nt and expectoran tsleeping wellVSSPEx - lungs CTAB, dry mucous membranesr eassured SILc/w OTC medsincrea se fluid intakef/u in 3 days if symptoms do not improve Alzheimer's disease 2692 9004 G30.9 11/15/22:req uested records from [facility] and [facility] 02/16/22:Raquel gnosed with alzheimer' s and dementia 2 yrs ago. Follows with neurology at [facility].tele visit 09/2021: started on aricept 5 mgc/o worsening repetition and memoryadvi sed f/u with neuro to see if can increase aricept Dementia 98644170 F03.90 11/15/22:[facility] 02/16/22:Raquel gnosed with alzheimer' s and dementia 2 yrs ago. Follows with neurology at [facility].tele visit 09/2021: started on aricept 5 mgc/o worsening repetition and memoryadvi sed f/u with neuro to see if can increase aricept [id number] Moreno de león MD [facility] [address] [place] [address] 03/22/2023 09:27:36 03/22/2023 09:58:00 Alzheimer's disease 26774002 G30.9 03/22/23:wa nts bedside step stool DME, need assistance getting in and out of bedusing wheelchair and gait belt to help with balance and walking 11/15/22:req uested records [facility] 02/16/22:Raquel gnosed with alzheimer' s and dementia 2 yrs ago. Follows with neurology at [facility].tele visit 09/2021: started on aricept 5 mgc/o worsening repetition and memoryadvi sed f/u with neuro to see if can increase aricept Dementia 33037893 F03.90 03/22/23:us ing wheelchair and gait belt to help with balance and walking 11/15/22:[facility] 02/16/22:Raquel gnosed with alzheimer' s and dementia 2 yrs ago. Follows with neurology at [facility].tele visit 09/2021: started on aricept 5 mgc/o worsening repetition and memoryadvi sed f/u with neuro to see if can increase aricept Hyperlipidemia 76869612 E78.5 re-check labson ator 40 Onychomyco sis of toenails 736229215 B35.1 refer to podiatry Eczema 40080590 L30.9 03/22/23:do rsal aspect of bilateral feetno improvemen t with steroids or thick lubricantr efer to podiatry, see abovefutur e referral to derm 02/16/22:xer osis, erythema, and peeling to dorsal aspect of bilateral feet w/ onychomyco sisno relief with eucerintri al topical steroidf/u in 1 wk if sx don't improve, refer to podiatry Localized swelling of left foot 0310549432 0974281 R22.42 x1 mono pain/traum a/injurysi ts most of the dayrelief with elevating legsPEx- mild edema to lateral aspect of L ankle, non pittingrea ssured MARIA C, no concerning sxc/w elevating legs, watch salt intake Hypothyroidism 53489166 E03.9 TSH nl 09/2022 Retention of urine 61121 4002 R33.9 stops drinking liquids at 7 PM, doesn't urinate until 11 AM the following dayurinate s 4-5x/dayno concerning sxprovided reassuranc e Depression screening 171 101106 Z13.31 PHQ 0 [id number] EMMY MCCORD DPM [facility] [address] [place] [address] 04/03/2023 10:42:46 04/05/2023 13:34:15 Bilateral atherosclerosis of arteries of lower limbs 2790975892 7579783 I70.203 The patient was educated about the importance of exercise, diet and the need to protect their feet in order to prevent injury or ulceration Localized edema 43739297 4 R60.0 The patient was educated about the importance of exercise, diet and the need to protect their feet in order to prevent injury or ulceration Tinea pedis 3804449 B35. 3 The patient was educated why and how the fungal infection evolved in their feet and the patient was given informatio n regarding how to prevent further infection. The patient was told to keep feet dry and change socks. The patient was told to be careful with old shoes and excessive sweating. The patient was educated regarding both OTC and prescripti on treatments . Xerosis du e to atopic dermatitis 824495550 L85.3 The patient was educated regarding proper hydration of their feet/ankle s and the patient was given several recommenda tions for proper creams to protect/hy drate and keep the area healthy Onychomycosis 461388418 B35.1 Pain in left foot 606757 5022 95094 M79.672 Pain in right foot 12409 47971 89648 M79.977 [id number] LAINE PRESTON [facility] [address] [place] [address] 06/21/2023 09:59:02 06/21/2023 10:45:18 Alzheimer's disease 40098407 G30.9 06/21/23:c omplicated by patient's down syndromedi scussed with caregiver at length about the worsening progressio n of pt's diseasecar egiver agrees she is unable to care for patient at homerec'd call neurologis t for referrals, call pt's insurance for skilled facilities if pt continues to have a decreased appetite and poor fluid intake, rec'd go to ED for eval 03/22/23:wa nts bedside step stool DME, need assistance getting in and out of bedusing wheelchair and gait belt to help with balance and walking 11/15/22:req uested records from [facility] and [facility] 02/16/22:Raquel gnosed with alzheimer' s and dementia 2 yrs ago. Follows with neurology at [facility].tele visit 09/2021: started on aricept 5 mgc/o worsening repetition and memoryadvi sed f/u with neuro to see if can increase aricept Dementia 40640653 F03.90 06/21/23:c omplicated by pt's down syndromedi scussed with caregiver at length about the worsening progressio n of pt's diseasecar egiver agrees she is unable to care for patient at homerec'd call neurologis t for referrals, call pt's insurance for skilled facilities if pt continues to have a decreased appetite and poor fluid intake, rec'd go to ED for eval 03/22/23:us ing wheelchair and gait belt to help with balance and walking 11/15/22:req uested records from [facility] ed [facility] and [facility] 02/16/22:Raquel gnosed with alzheimer' s and dementia 2 yrs ago. Follows with neurology at [facility].tele visit 09/2021: started on aricept 5 mgc/o worsening repetition and memoryadvi sed f/u with neuro to see if can increase aricept Health Concerns Section Related Observation LastModified by Organization Detai ls LastModified Time None Recorded Concern Status LastModified by Organization Details LastModified Time None Recorded Advance Directives Directive Y: Payers Insurance Date Sequence Insurance Name Policy Number Policy Beavers Covered Member ID Beavers Member ID Guarantor Name 06/12/2025 1 [facility] (MEDICARE REPLACEMENT/AD VANTAGE - HMO) [id number] Barbara Moss [id number] Barbara Moss 06/12/2025 2 [place] WHEN MEDICARE OR MEDICARE REPLACEMENT PRIMARY) Barbara Moss [id number] Barbara Moss 06/12/2025 1 [place] Barbara Moss [id number] Barbara Moss 06/12/2025 [place] [facility] Barbara Moss [id number] Barbara Moss Notes Date Note Type Note Provider Name and Address Organization Details Recorded Time 11/15/2022 text/html ROS as noted in the HPI Pt presents with productive cough and pink eye x2 days. Sister in law provides history. Productive cough started 2 days ago, a/w with green sputum. Cough is worse when pt tries to eat. She is sleeping well with her CPAP. Ptt woke up with green junk in her eyes yesterday morning and rubbed her eyes all day yesterday. She has been applying cool compresses and using blink eye drops. Pt has been taking decongestant and expectorant for cough. Unknown fevers due to pt not tolerating thermometer in her mouth. LAINE PRESTON Attn: Accounting[address] [place], [address], [facility] 11/15/2022 12:41:57 03/22/2023 text/html ROS as noted in the HPI Pt presents with eczema, L foot swelling, and mobility issues. Caregiver is pt's MARIA C. Reports that pt is now using a wheelchair and gait belt to help her with walking and balance. MARIA C is concerned that pt doesn't urinate until 11 AM the following day. She stops drinking liquids at 7 PM the night prior. Denies hematuria, urinary odor, retention, or dark colored urine. Pt urinates 4-5x/day.C/o worsening eczema to the top of her feet and L foot swelling. Requesting referral to derm. No trauma or injury to left foot. Denies pain. Pt sits most of the day. MARIA C has been elevating her legs w/ improvement. LAINE PRESTON Attn: Accounting[address] [place], [address], [facility] 03/22/2023 18:40:58 04/03/2023 text/html ROS as noted in the HPI Patient presents today for evaluation and treatment of nail deformities as well as generalized foot care. The patient states their nails are painful. The patient has been unable to provide self care due to the severe nature of the deformity and their medical condition(s). The patient is receiving medically necessary foot care in order to prevent further problems as well as to relieve irritation and discomfort.Denies nausea, vomiting, fever, chills, shortness of breath, chest pain, difficulty breathing, calf pain. Patient reports thickened toenails, toe nail changes, skin changes on lower legs, and denies tingling and numbness in toes and feet EMMY MCCORD, SHALINI [address], [place], [address], [place] [facility] [place] 04/04/2023 21:11:53 06/21/2023 text/html ROS as noted in the HPI Pt presents with caregiver for behavioral concerns. H/o alzheimer's dementia and down syndrome. Pt has been under guardianship of her foster brother and his since 2004. Sister in law not by blood is patient's keller machine operator. Caregiver states for the past 3 months, pt will have crying spells and starts shaking uncontrollably. Occurs in short bursts for 2 hours at a time, unable to tell caregiver what is wrong. If pt is touched she will scream and try to hit and then say hi how are you? Pt has difficulty getting up out of wheelchair to stand, walk or go to the bathroom. Caregiver has to roll pt over in the bed to change her and give her bed baths. Pt has had a decreased appetite for the past week and forgot how to use a silverware/straw. She drank water this morning. It took caregiver 10 minutes to get patient into car this morning. Caregiver denies trauma, injury or falls at home. LAINE PRESTON Attn: Accounting[address] [place], [address], [place] [facility] [place] 06/21/2023 16:40:44 OBGyn Episode No OBEpisode recorded.
--- NOTE | 2025-07-10 16:29 | REHSTMBS ---
Assessment and note entered by Angela Guajardo, [employer] Modified Barium Swallow Evaluation Feeding Type Recommended Oral Food Consistency Pureed, Level 4 Liquid Consistency Extremely Thick (4) ST Clinical Summary The patient is a 60 year old female with a history of dysphagia currently on a puree diet and thin liquid. She receives assistance with feeding for meals and positioning. Staff accompanying the patient state her alertness can fluctuate and she has had coughing on varying textures. The patient was positioned in a lateral view with staff assistance and presented the following consistencies 5cc/tsp thin liquid barium, 5cc/tsp mildly thick liquid barium, 5cc/ tsp moderately thick liquid barium, and pudding mixed with barium paste. Oral Stage: Timely oral preparation and transit for all consistencies. Pharyngeal Stage: When presented tsp trials thin, mildly thick, and moderately thick liquid the patient was viewed to have calvin penetration due to reduced epiglottic inversion and reduced laryngeal elevation. The patient is unable to follow directives for a chin tuck posture with swallows. When presented pudding mixed with barium paste the patient completed swallows with a more cohesive formed bolus and no viewed aspiration or penetration. No significant residual was viewed to remain in the valleculae of pyriform sinus across consistencies. Recommend: 1. Puree Diet / Level 4 2. Extremely thick liquids / Level 4 3. Upright with all meals. 4. Small bites (tsp liquids and extremely thick liquids) 5. Feed slow rate and when alert. Thank you for the consult
== END 2025-07-10 14:19 | disposition home or self-care (01) ==
PROVIDERS: PCP Family Medicine; Visit Provider Internal Medicine
DX: R13.10 Dysphagia, unspecified (principal)
CPT/HCPCS: 74230; 92611